=== PATIENT | male | born 1995 | race Caucasian/White ===

== ENCOUNTER 2019-05-26 23:21 | Emergency (ER) | payer OTHER ==
[~2019-05-26] VITALS: Ht 172.7 cm; Wt 100.0 kg
[2019-05-26 23:22] VITALS: BP 148/84
[2019-05-26] MEDS ORDERED: GI COCKTAIL 50ML BTL(HYOSCYAMINE/MAALOX/LIDOCAINE VISCOUS)(1:3:1) PO ONE (23:45)
[2019-05-26] MEDS ORDERED: ONDANSETRON 4MG/2ML VIAL IV ONE (23:45)
[2019-05-26] MEDS ORDERED: PANTOPRAZOLE 40MG VIAL (C9113 PER 1) IV ONE (23:45)
[2019-05-26] MEDS ORDERED: SUCRALFATE 1 GM TAB PO ONE (23:45)
[2019-05-26] MEDS ORDERED: NS 1,000 ML IV ONE (23:45)
[2019-05-26 23:59] LABS: BASO % 0.2 % (0.0-1.0); EOS # 0.5 10^3/uL (0.0-0.5); EOS % 3.8 % (0.0-3.0); HEMATOCRIT 47.7 % (42.0-52.0); HEMOGLOBIN 16.9 g/dl (13.5-17.5); LYMPH % 23.5 % (24.0-44.0); MEAN CORPUSCULAR HEMOGLOBIN 29.7 pg (27.0-33.0); MEAN CORPUSCULAR HGB CONC 35.4 g/dl (32.0-36.5); MEAN CORPUSCULAR VOLUME 83.8 fl (80.0-96.0); MONO # 1.3 10^3/uL (0.0-0.8); MONO % 9.8 % (0.0-5.0); NEUTROPHILS # 8.1 10^3/uL (1.5-8.5); NEUTROPHILS % 62.5 % (36.0-66.0); PLATELET COUNT, AUTOMATED 309 10^3/uL (150-450); RED BLOOD COUNT 5.69 10^6/uL (4.30-6.10); WHITE BLOOD COUNT 12.9 10^3/uL (4.0-10.0)
[2019-05-27 00:22] LABS: ALBUMIN 4.1 GM/DL (3.2-5.2); BILIRUBIN,DIRECT 0.2 MG/DL (0.0-0.2); TOTAL PROTEIN 7.8 GM/DL (6.4-8.2)
[2019-05-27] MEDS ORDERED: KETOROLAC 30 MG/ML 1ML VIAL IV ONE (00:45)
[2019-05-27] MEDS ORDERED: DICYCLOMINE 10 MG CAP PO ONE (00:45)
[2019-05-27] MEDS ORDERED: OMEP40CA97 PO (01:18)
[2019-05-27] MEDS ORDERED: CARA1TAB6 PO (01:18)
[2019-05-27] MEDS ORDERED: DICY10CA13 PO (01:18)
== END 2019-05-27 02:20 | disposition home or self-care (01) ==
LOC: M ED 23:21
DX: R10.13 Epigastric pain (principal); D72.829 Elevated white blood cell count, unspecified; R11.0 Nausea
CPT/HCPCS: 80047; 80076; 83690; 85025; 96361; 96374; 96375; 99283; C9113; G0463; J1885; J2405

== ENCOUNTER → 2021-01-14 | Outpatient (REF) | payer OTHER ==
[~2021-01-14] MED LIST: CARA1TAB6 PO; DICY10CA13 PO; OMEP40CA4 PO
[2021-01-14 12:13] LABS: SEMEN APPEARANCE OPAQUE (OPAQUE); SEMEN VISCOSITY LIQUID (LIQUID); SEMEN VOLUME 1.7 ml (2.0-5.0); SEMEN pH 8.5 (7.0-8.0)
[2021-01-14 12:17] LABS: SPERM CONCENTRATION 16.4 M/ml (>=15.0); WBC CONCENTRATION <=1 M/ml (<=1 M/ml)
== END ==
LOC: M LAB REF 12:01
PROVIDERS: ATTEND Nurse Practitioner Family
DX: N46.9 Male infertility, unspecified (principal)